=== PATIENT | female | born 1960 | race Caucasian/White ===

== ENCOUNTER 2017-09-17 11:17 | Emergency (ER) | payer OTHER ==
[~2017-09-17] VITALS: Ht 170.2 cm; Wt 78.7 kg
[2017-09-17 11:19] VITALS: TEMP 36.7; Ht 170.2 cm; Wt 78.7 kg
[2017-09-17] MEDS ORDERED: PRED20TA2 PO (12:11)
[2017-09-17] MEDS ORDERED: RANITIDINE HCL 150 MG TAB PO ONE (12:15)
[2017-09-17] MEDS ORDERED: SYN125 PO (12:17)
[2017-09-17] MEDS ORDERED: [UNRECOGNIZED DRUG - CODE] PO (12:17)
[2017-09-17 12:26] VITALS: BP 154/108; PULSE 87; O2SAT 98
--- NOTE | 2017-09-18 15:32 | EMERGENCY ROOM VISIT NOTE ---
ED Visit Note First contact with patient: 11:25 Chief Complaint: I have well to all over my body and swelling of my lip. History of Present Illness: Ms. Ray is a 57-year-old white female who ambulates into the ED accompanied by multiple family members complaining of a possible allergic reaction. Patient reports that she has been on Augmentin for the last 4 days for strep throat. Today she noticed after waking she was having hives over multiple areas of her body. These areas were exceptionally itchy. And then she noted swelling of the lateral aspect of the upper lip on the left. Patient does report she took 50 mg of Benadryl prior to arrival at the hospital for her welts and itching. She became concerned and was brought into the ED by family members. Additionally she reports she has a history of chronic headaches and during transport to the hospital she developed a headache. Since that time her pain has been constant. She describes her pain as a throbbing and pressure sensation. She did not rate her discomfort. She has not identified any aggravating or alleviating factors related to the pain. She has not taken medications for pain prior to arrival at the hospital. She reports this is not the worst headache of her life and similar to previous. She did question me if this could be an ruptured aneurysm or stroke. When I informed her I did not think this was an aneurysm or stroke she did know longer want her headache evaluated. She denies fevers, chills, sweats, other skin eruptions, other skin color changes, recent head trauma, dizziness, visual changes, hearing changes, difficulty speaking, difficulty swallowing, difficulty ambulating/coronary body movements, sensations of tongue swelling, sensations of throat swelling, cough, wheezing, shortness of breath, difficulty swallowing, painful talking, drooling , chest pain, palpitations, abdominal pain, nausea, vomiting, extremity weakness /numbness/tingling. Review of Systems: As noted above in history of present illness. At least body systems were reviewed and found to be negative as noted above. Past Medical History: As noted above and hypothyroidism, chronic back pain, status post hysterectomy, unspecified spinal fusion Current Medications: Pristiq, Synthroid. Allergies to Medications: Patient denies. Social History: Patient is currently employed; she feels safe in her home environment; she denies tobacco and alcohol use. Physical Examination: Vital Signs: Date Time Temp Pulse Resp B/P (MAP) Pulse Ox O2 Delivery O2 Flow Rate FiO2 09/17/17 12:26 87 154/108 98 09/17/17 11:19 36.7 80 18 158/99 98 Room Air GENERAL: 57-year-old female in no acute distress, nontoxic-appearing, afebrile and hemodynamically stable. Patient is anxious. NEUROLOGICAL: Awake, alert and oriented to person, place and time. Answering questions appropriately and following commands. Normal gait. Good hand eye coordination. Cranial nerves II through XII grossly intact. Good short-term and long-term recall. SKIN: Warm, dry and pink. Patient has hives on multiple areas of the body including the head, upper and lower extremities, abdomen and back. HEENT: Atraumatic and normocephalic. PERRLA. EOMI without nystagmus. Sclera white and conjunctiva pink. No drainage from naris. Oral cavity moist and pink. Pharynx is nonerythematous or edematous. Speech normal. No lymphadenopathy. Trachea midline. No jugular venous distention. No auditory auscultatory stridor. BACK: No tenderness over the bony spine. No CVA tenderness. THORAX: Lungs sounds are clear to auscultation and equal bilaterally with symmetrical chest wall. No wheezing, rales or rhonchi. No crepitus, tenderness , subcutaneous air or deformities noted. HEART: Regular rate and rhythm. No gallops, rubs or murmurs are appreciated. ABDOMEN: Flat, soft and nontender. Positive bowel sounds in all quadrants. No guarding, rigidity or organomegaly. EXTREMITIES: Moves all extremities well on command and with purpose. All distal neurovascular statuses are intact and equal bilaterally. ED Course: Patient is assessed as noted above. Patient's medication list was reviewed. Patient was given 60 mg of prednisone and 150 mg of ranitidine by mouth for her symptoms. Patient was educated about today's findings and instructed on her treatment plan ; she verbalized understanding and agreement with this plan. Clinical Impression: Allergic reaction. Disposition: Patient discharged home in stable condition accompanied by family member; prior to departure she was reassessed and subjectively reported she was feeling the same. Plan: Patient was encouraged to stop the Augmentin. Patient was prescribed prednisone 60 mg once a day for total 5 days. Patient was encouraged use over the counter Benadryl 50 mg every 6 hours and [id number] Zantac 150 mg every 12 hours until resolution of hives and itching. Patient is encouraged avoid showers and baths and use cool compresses or ice bags on areas of severe itching. Patient is encouraged to follow-up with family physician for recheck and possible referral to industrial pharmacist. Patient was encouraged return to the ED for worsening hives, worsening itchy skin, worsening swelling lips, swelling tone, sensations of throat swelling, shortness of breath/wheezing or any new/concerning symptoms.
== END 2017-09-17 12:25 | disposition home or self-care (01) ==
LOC: C.EDB 11:20 → C.EDD 12:25
DX: T78.40XA Allergy, unspecified, initial encounter (principal); X58.XXXA Exposure to other specified factors, initial encounter; E03.9 Hypothyroidism, unspecified; M54.9 Dorsalgia, unspecified; G89.29 Other chronic pain; Z90.710 Acquired absence of both cervix and uterus